=== PATIENT | male | born 1955 | race Caucasian/White ===

== ENCOUNTER → 2020-09-17 | Outpatient (CLI) | payer SELFPAY | LOC: M LABSMTC 13:47 | PROVIDERS: ATTEND Pediatrics | DX: Z20.822 Contact with and (suspected) exposure to COVID-19 (principal) ==

== ENCOUNTER → 2023-05-12 | Outpatient (CLI) | payer MEDICARE, BC | LOC: M WUC 09:24 | PROVIDERS: ATTEND Physician Assistant Medical | DX: M25.561 Pain in right knee (principal); M25.562 Pain in left knee ==

== ENCOUNTER → 2024-07-03 | Outpatient (REF) | payer MEDICARE | LOC: M LAB REF 13:07 | PROVIDERS: ATTEND Physician Assistant Medical | DX: E03.9 Hypothyroidism, unspecified (principal) ==

== ENCOUNTER 2024-09-21 09:18 | Day surgery (SDC) | payer MEDICARE ==
[~2024-09-21] VITALS: Ht 167.6 cm; Wt 86.6 kg
[~2024-09-21 09:18] MED LIST: ASPI81TA26 PO; FLON27.5 NARES; LEVO112T2 PO; LISI10TA22 PO; PANT40TA29 PO; ROSU5TAB49 PO
[2024-09-21 09:37] VITALS: TEMP 97.1
[2024-09-21] MEDS ORDERED: GLYCOPYRROLATE INJ 0.2 MG/ML 2 ML VIAL As Ordered ONE (09:42)
[2024-09-21] MEDS ORDERED: LIDOCAINE 2% 100MG/5ML SDV (FOR ANES.) As Ordered ONE (09:42)
[2024-09-21] MEDS ORDERED: propofoL 200 MG/20 ML VIAL As Ordered ONE (09:42)
[2024-09-21 10:27] VITALS: BP 92/56; O2SAT 98
== END 2024-09-21 10:33 | disposition home or self-care (01) ==
LOC: M OPP 09:18
PROVIDERS: ATTEND Surgery
DX: K31.7 Polyp of stomach and duodenum (principal); G47.30 Sleep apnea, unspecified; Z79.82 Long term (current) use of aspirin; Z79.899 Other long term (current) drug therapy
CPT/HCPCS: 43239; 88305; J1596

== ENCOUNTER → 2024-10-30 | Outpatient (CLI) | payer MEDICARE | LOC: M RAD 07:28 | PROVIDERS: ATTEND Surgery | DX: Z53.9 Procedure and treatment not carried out, unspecified reason (principal) ==

== ENCOUNTER 2025-05-23 07:26 | Day surgery (SDC) | payer MEDICARE ==
[~2025-05-23] VITALS: Ht 167.6 cm; Wt 84.6 kg
[~2025-05-23 07:26] MED LIST changes: +FERR324T21 PO
[2025-05-23] MEDS ORDERED: LIDOCAINE 2% 100 MG/5 ML SDV (FOR ANES.) As Ordered ONE (08:34)
[2025-05-23 08:58] VITALS: TEMP 98
[2025-05-23 09:22] VITALS: BP 147/87; O2SAT 97
== END 2025-05-23 09:37 | disposition home or self-care (01) ==
LOC: M OPP 07:26
PROVIDERS: ATTEND Surgery
DX: K57.30 Diverticulosis of large intestine without perforation or abscess without bleeding (principal); D50.9 Iron deficiency anemia, unspecified; G47.30 Sleep apnea, unspecified; Z79.899 Other long term (current) drug therapy; Z79.51 Long term (current) use of inhaled steroids; Z79.82 Long term (current) use of aspirin

== ENCOUNTER → 2025-09-10 | Outpatient (CLI) | payer MEDICARE | LOC: M PLAIMG 08:22 | PROVIDERS: ATTEND Physician Assistant | DX: J32.8 Other chronic sinusitis (principal) ==